=== PATIENT | female | born 1985 | race Two or more races ===

== ENCOUNTER 2022-02-20 11:59 | Emergency (ER) | payer SELFPAY ==
[2022-02-20 17:34] LABS: HEMOGLOBIN 14.6 gm/dl (12.3-15.3); RED BLOOD COUNT 5.05 M/UL (4.00-5.10); WHITE BLOOD COUNT 8.1 K/UL (4.5-11.0)
[2022-02-20 17:54] LABS: BUN/CREATININE RATIO 18 (0-10)
[2022-02-20] MEDS ORDERED: DOXYCYCLINE HY100 MG PO (18:40)
== END 2022-02-20 19:05 | disposition home or self-care (01) ==
LOC: ER1 11:59
PROVIDERS: Emergency Medicine
DX: L72.9 Follicular cyst of the skin and subcutaneous tissue, unspecified (principal)
CPT/HCPCS: 71111; 80053; 84703; 85025; 85610; 85730; 99283